=== PATIENT | male | born 1955 | race Caucasian/White ===

== ENCOUNTER 2022-08-01 13:55 | Emergency (ER) | payer BC ==
[~2022-08-01] VITALS: Ht 172.7 cm; Wt 73.0 kg
[2022-08-01 14:01] VITALS: BP 116/80
[2022-08-02] MEDS ORDERED: CHLO25CA10 MT (20:37)
== END 2022-08-01 17:30 | disposition left against medical advice (07) ==
LOC: ER 13:55
DX: F10.129 Alcohol abuse with intoxication, unspecified (principal); E78.00 Pure hypercholesterolemia, unspecified; I10 Essential (primary) hypertension; Y90.9 Presence of alcohol in blood, level not specified
CPT/HCPCS: 99283

== ENCOUNTER 2022-08-02 15:27 | Emergency (ER) | payer BC ==
[~2022-08-02] VITALS: Ht 177.8 cm; Wt 82.0 kg
[2022-08-02] MEDS ORDERED: CHLORDIAZEPOXIDE 25MG CAPSULE PO ONE (20:15)
[2022-08-02] MEDS ORDERED: CHLO25CA10 MT (20:37)
[2022-08-02 21:09] VITALS: BP 126/74
== END 2022-08-02 21:25 | disposition home or self-care (01) ==
LOC: ER 15:40
DX: S05.11XA Contusion of eyeball and orbital tissues, right eye, initial encounter (principal); I10 Essential (primary) hypertension; E78.00 Pure hypercholesterolemia, unspecified; F10.239 Alcohol dependence with withdrawal, unspecified; F10.229 Alcohol dependence with intoxication, unspecified; Y90.9 Presence of alcohol in blood, level not specified; W01.0XXA Fall on same level from slipping, tripping and stumbling without subsequent striking against object, initial encounter; Y93.89 Activity, other specified; Y92.488 Other paved roadways as the place of occurrence of the external cause
CPT/HCPCS: 99284

== ENCOUNTER 2023-03-05 13:05 | Emergency (ER) | payer BC ==
[~2023-03-05] VITALS: Ht 170.2 cm; Wt 73.0 kg
[~2023-03-05 13:05] MED LIST: CHLO25CA10 MT
[2023-03-05 13:11] VITALS: BP 0/0
== END 2023-03-05 13:27 | disposition left against medical advice (07) ==
LOC: ER 13:05
DX: Z00.00 Encounter for general adult medical examination without abnormal findings (principal); I10 Essential (primary) hypertension; E78.00 Pure hypercholesterolemia, unspecified
CPT/HCPCS: 99283

== ENCOUNTER 2023-03-08 06:36 | Emergency (ER) | payer BC ==
[~2023-03-08] VITALS: Ht 177.8 cm; Wt 70.0 kg
[2023-03-08 06:43] VITALS: BP 141/81
[2023-03-08 09:59] LABS: BASOPHILS % 0.1 % (0.0-2.0); HEMATOCRIT. 43.4 % (42.0-52.0); LYMPHOCYTES % 13.3 % (20.0-50.0); MEAN CORPUSCULAR HEMOGLOBIN 31.9 pg (28.0-32.0); MEAN CORPUSCULAR VOLUME 92.3 fL (80.0-94.0); MEAN PLATELET VOLUME 7.8 fl (7.4-10.4); MONOCYTES % 12.7 % (2.0-8.0); NEUTROPHILS % 73.9 % (40.0-76.0); PLATELET 234 x1000/uL (130-400); RED CELL DISTRIBUTION WIDTH 13.8 % (11.6-14.6)
[2023-03-08 10:04] LABS: CHLORIDE 92 mEq/L (98-107)
[2023-03-08 10:19] LABS: ETHANOL BLOOD 281 mg/dL (-10)
== END 2023-03-08 09:22 | disposition left against medical advice (07) ==
LOC: ER 06:46
DX: F10.129 Alcohol abuse with intoxication, unspecified (principal); Y90.8 Blood alcohol level of 240 mg/100 ml or more
CPT/HCPCS: 36415; 80053; 80320; 83735; 85025; 99283; G0480